=== PATIENT | female | born 1970 | race Caucasian/White ===

== ENCOUNTER 2019-04-02 09:20 | Day surgery (SDC) | payer MEDICAID ==
[~2019-04-02] VITALS: Ht 152.4 cm; Wt 61.7 kg
[~2019-04-02 09:20] MED LIST: HYDR25TA PO
[2019-04-02] MEDS ORDERED: LACTATED RINGERS 1,000 ML IV SCH (09:30)
[2019-04-02] MEDS ORDERED: MORPHINE SULFATE/PF 1MG/ML 10ML AMP ONE (11:29)
[2019-04-02] MEDS ORDERED: BUPIVACAINE HCL/EPINEPHRINE 0.5%/0.0005 30ML ONE ×2 (11:30→15:58)
[2019-04-02] MEDS ORDERED: EPINEPHRINE 1:1000 1 MG/ML AMP ONE (15:59)
[2019-04-02] MEDS ORDERED: MIDAZOLAM HCL 2 MG/2 ML VIAL ONE (16:56)
[2019-04-02] MEDS ORDERED: FENTANYL CITRATE/PF 50MCG/ML 2ML VIAL ONE (16:56)
[2019-04-02] MEDS ORDERED: PROPOFOL 200MG/20ML VIAL IV ONE ×2 (16:56→17:28)
[2019-04-02] MEDS ORDERED: DEXAMETHASONE 4MG/ML 1ML VIAL ONE (17:27)
[2019-04-02] MEDS ORDERED: LABETALOL 5MG/ML SYR 20 MG/4 ML SYRINGE IV PRN (17:30)
[2019-04-02] MEDS ORDERED: MEPERIDINE HCL/PF 25MG/ML CPJ IV PRN (17:30)
[2019-04-02] MEDS ORDERED: ONDANSETRON HCL 4MG/2ML INJ IV PRN (17:30)
[2019-04-02] MEDS ORDERED: HYDROCODONE/ACETAMINOPHEN 10/325MG TABLET PO PRN (18:30)
[2019-04-02] MEDS: HYDROMORPHONE HCL/PF 2MG/ML CPJ IV PRN ×2 (18:42→18:56)
[2019-04-02 19:23] VITALS: BP 121/63
== END 2019-04-02 20:20 | disposition home or self-care (01) ==
LOC: OR 09:20
PROVIDERS: ATTEND Orthopaedic Surgery
DX: M17.12 Unilateral primary osteoarthritis, left knee (principal); S83.282A Other tear of lateral meniscus, current injury, left knee, initial encounter; M65.88 Other synovitis and tenosynovitis, other site; M25.762 Osteophyte, left knee; I10 Essential (primary) hypertension; M94.262 Chondromalacia, left knee; Z79.899 Other long term (current) drug therapy; Z90.710 Acquired absence of both cervix and uterus; Z91.040 Latex allergy status; Z88.8 Allergy status to other drugs, medicaments and biological substances; X58.XXXA Exposure to other specified factors, initial encounter; Y93.89 Activity, other specified; Y92.89 Other specified places as the place of occurrence of the external cause; Y99.8 Other external cause status
CPT/HCPCS: 29881; 88304; 88311; 97116; J0171; J1100; J1170; J2250; J2405; J2704; J3010; J3490; J2274